=== PATIENT | female | born 1955 | race American Indian/Alaskan Native ===

== ENCOUNTER 2020-06-03 13:20 | Emergency (ER) | payer OTHER ==
--- NOTE | 2020-06-03 14:12 | Emergency Department Report ---
ED General Adult HPI - General Chief complaint: Chest Pain Time Seen by Provider: 06/03/20 14:11 Source: EMS Mode of arrival: Stretcher Limitations: Physical Limitation - History of Present Illness Initial comments: Patient is a 65-year-old female with history of end-stage renal disease with Wednesday dialysis who was sent from dialysis for incidental finding of rapid atrial fibrillation during dialysis. Patient currently asymptomatic, denies chest pain, denies shortness of breath. Patient does feel palpitations, notes she has felt these palpitations intermittently x1 year. Patient denies calf pain or swelling. - Related Data Allergies Allergy/AdvReac Type Severity Reaction Status Date / Time lisinopril Allergy Swelling Verified 06/03/20 14:07 ED Review of Systems ROS: Stated complaint: Other details as noted in HPI Comment: All other systems reviewed and negative ED Past Medical Hx - Past Medical History Previous Medical History?: Yes Hx Hypertension: Yes Hx Renal Disease: Yes (ESRD) - Surgical History Past Surgical History?: Yes Additional Surgical History: Fistula Right Arm - Social History Smoking Status: Never Smoker Substance Use Type: None ED Physical Exam - General Limitations: Physical Limitation General appearance: alert, in no apparent distress - Head Head exam: Present: atraumatic, normocephalic - Eye Eye exam: Present: normal appearance - ENT ENT exam: Present: mucous membranes moist - Neck Neck exam: Present: normal inspection - Respiratory Respiratory exam: Present: normal lung sounds bilaterally. Absent: respiratory distress - Cardiovascular Cardiovascular Exam: Present: regular rate, irregular rhythm. Absent: systolic murmur, diastolic murmur, rubs, gallop - GI/Abdominal GI/Abdominal exam: Present: soft, normal bowel sounds - Extremities Exam Extremities exam: Present: normal inspection - Back Exam Back exam: Present: normal inspection - Neurological Exam Neurological exam: Present: alert, oriented X3 - Psychiatric Psychiatric exam: Present: normal affect, normal mood - Skin Skin exam: Present: warm, dry, intact, normal color. Absent: rash ED Course Vital Signs 06/03/20 06/03/20 06/03/20 14:03 14:08 14:16 Temperature 98.6 F Pulse Rate 112 H 99 H 109 H Respiratory 20 22 23 Rate Blood Pressure 134/63 O2 Sat by Pulse 99 100 100 Oximetry 06/03/20 06/03/20 06/03/20 14:30 14:46 15:00 Temperature Pulse Rate 113 H 105 H 101 H Respiratory 20 21 26 H Rate Blood Pressure 117/74 117/74 113/92 O2 Sat by Pulse 100 100 100 Oximetry 06/03/20 06/03/20 06/03/20 15:16 15:30 15:46 Temperature Pulse Rate 119 H 108 H 104 H Respiratory 18 14 18 Rate Blood Pressure 113/92 151/89 151/79 O2 Sat by Pulse 100 99 100 Oximetry 06/03/20 06/03/20 06/03/20 16:00 16:14 16:16 Temperature Pulse Rate 117 H 117 H 97 H Respiratory 20 17 Rate Blood Pressure 141/78 149/81 O2 Sat by Pulse 100 100 Oximetry 06/03/20 06/03/20 16:31 16:53 Temperature Pulse Rate 100 H 111 H Respiratory 18 Rate Blood Pressure 134/74 O2 Sat by Pulse 100 Oximetry - Reevaluation(s) Reevaluation #1: 06/03/20 17:10 Patient consistently between 90-105 in atrial fibrillation on desk monitor. Patient asymptomatic throughout entirety of emergency department evaluation. Patient states she was never on blood thinners, was on medication for rate controlled which was discontinued 3 months ago by nephrology, notes she has history of atrial fibrillation. [facility] contacted, states patient previ ously was taking: Carv 3.125 bid Colace daily Lasix 80mg every other day Quetiapine 150mg qhs Rumdella Ventolin Patient now currently only taking Rumdella binder. Patient's daughter contacted, case discussed, states patient was supposed to get evaluated by cardiology 3 weeks ago, appointment was canceled secondary to patient testing positive for Covid. [facility] on-call physician contacted, case discussed, reviewed records, verifies patient's previous medication regimen, notes no upcoming appointments for patient. Willing to accept patient for transfer or arrange follow-up with primary care doctor tomorrow and cardiology later this week. Patient advised to stay in hospital at this facility or to be transferred to [facility], however, patient requests discharge as she remains asymptomatic. Patient does have history of atrial fibrillation, is rate controlled in no acute distress without any acute medical complaint. In consultation with [place], patient given 1 dose of carvedilol 3.125 prior to discharge for rate control, follow-up arranged for tomorrow by [place]. Patient is advised to follow-up without fail or return to the emergency department for any difficulty with her inability to follow-up as well as for any worsening or developing symptoms. Patient's daughter again contacted to reiterate plan in regards to medication follow-up. Patient advised to take 1 carvedilol 3.125 tomorrow morning. On discharge, patient in no acute distress, and rate controlled atrial fibrillation without medical complaint. ED Medical Decision Making - Lab Data Result diagrams: 06/03/20 14:31 06/03/20 14:31 Lab Results 06/03/20 06/03/20 06/03/20 Range/Units 14:31 14:31 14:31 WBC 7.7 (4.5-11.0) K/mm3 RBC 3.25 L (3.65-5.03) M/mm3 Hgb 11.2 (10.1-14.3) gm/dl Hct 33.3 (30.3-42.9) % MCV 103 H (79-97) fl MCH 34 H (28-32) pg MCHC 34 (30-34) % RDW 18.0 H (13.2-15.2) % Plt Count 150 (140-440) K/mm3 Lymph % (Auto) 9.7 L (13.4-35.0) % Ross % (Auto) 15.3 H (0.0-7.3) % Eos % (Auto) 2.9 (0.0-4.3) % Baso % (Auto) Bus Starter Lymph # (Auto) 0.7 L (1.2-5.4) K/mm3 Ross # (Auto) 1.2 H (0.0-0.8) K/mm3 Eos # (Auto) 0.2 (0.0-0.4) K/mm3 Baso # (Auto) 0.1 (0.0-0.1) K/mm3 Seg Neutrophils % 71.3 H (40.0-70.0) % Seg Neutrophils # 5.5 (1.8-7.7) K/mm3 PT (12.2-14.9) Sec. INR (0.87-1.13) APTT (24.2-36.6) Sec. Sodium Cancelled 140 Potassium Cancelled 4.7 Chloride Cancelled 98.7 Carbon Dioxide Cancelled 30 Anion Gap Cancelled 16 BUN Cancelled 58 H Creatinine Cancelled 10.7 H Estimated GFR Cancelled 4 BUN/Creatinine Ratio Cancelled 5 Glucose Cancelled 73 Calcium Cancelled 10.1 Magnesium 2.60 H (1.7-2.3) mg/dL Total Bilirubin Cancelled AST Cancelled ALT Cancelled Alkaline Phosphatase Cancelled Troponin T 0.074 H (0.00-0.029) ng/mL NT-Pro-B Natriuret Pep Cancelled Total Protein Cancelled Albumin Cancelled Albumin/Globulin Ratio Cancelled Triglycerides 80 (2-149) mg/dL Cholesterol 152 (50-199) mg/dL LDL Cholesterol Direct 64 (50-130) mg/dL HDL Cholesterol 88 H (40-59) mg/dL Cholesterol/HDL Ratio 1.72 % Lipase Cancelled TSH (0.270-4.200) mlU/mL 06/03/20 06/03/20 Range/Units 14:31 14:31 WBC (4.5-11.0) K/mm3 RBC (3.65-5.03) M/mm3 Hgb (10.1-14.3) gm/dl Hct (30.3-42.9) % MCV (79-97) fl MCH (28-32) pg MCHC (30-34) % RDW (13.2-15.2) % Plt Count (140-440) K/mm3 Lymph % (Auto) (13.4-35.0) % Ross % (Auto) (0.0-7.3) % Eos % (Auto) (0.0-4.3) % Baso % (Auto) Lymph # (Auto) (1.2-5.4) K/mm3 Ross # (Auto) (0.0-0.8) K/mm3 Eos # (Auto) (0.0-0.4) K/mm3 Baso # (Auto) (0.0-0.1) K/mm3 Seg Neutrophils % (40.0-70.0) % Seg Neutrophils # (1.8-7.7) K/mm3 PT 16.2 H (12.2-14.9) Sec. INR 1.32 H (0.87-1.13) APTT 36.5 (24.2-36.6) Sec. Sodium Potassium Chloride Carbon Dioxide Anion Gap BUN Creatinine Estimated GFR BUN/Creatinine Ratio Glucose Calcium Magnesium (1.7-2.3) mg/dL Total Bilirubin AST ALT Alkaline Phosphatase Troponin T (0.00-0.029) ng/mL NT-Pro-B Natriuret Pep Total Protein Albumin Albumin/Globulin Ratio Triglycerides (2-149) mg/dL Cholesterol (50-199) mg/dL LDL Cholesterol Direct (50-130) mg/dL HDL Cholesterol (40-59) mg/dL Cholesterol/HDL Ratio % Lipase TSH 1.310 (0.270-4.200) mlU/mL Vital Signs 06/03/20 06/03/20 06/03/20 14:03 14:08 14:16 Temperature 98.6 F Pulse Rate 112 H 99 H 109 H Respiratory 20 22 23 Rate Blood Pressure 134/63 O2 Sat by Pulse 99 100 100 Oximetry 06/03/20 06/03/20 06/03/20 14:30 14:46 15:00 Temperature Pulse Rate 113 H 105 H 101 H Respiratory 20 21 26 H Rate Blood Pressure 117/74 117/74 113/92 O2 Sat by Pulse 100 100 100 Oximetry 06/03/20 06/03/20 06/03/20 15:16 15:30 15:46 Temperature Pulse Rate 119 H 108 H 104 H Respiratory 18 14 18 Rate Blood Pressure 113/92 151/89 151/79 O2 Sat by Pulse 100 99 100 Oximetry 06/03/20 06/03/20 06/03/20 16:00 16:14 16:16 Temperature Pulse Rate 117 H 117 H 97 H Respiratory 20 17 Rate Blood Pressure 141/78 149/81 O2 Sat by Pulse 100 100 Oximetry 06/03/20 06/03/20 16:31 16:53 Temperature Pulse Rate 100 H 111 H Respiratory 18 Rate Blood Pressure 134/74 O2 Sat by Pulse 100 Oximetry - EKG Data -: EKG Interpreted by Me (Atrial fibrillation at 88, no ST-T changes, normal QRS) - Radiology Data Radiology results: report reviewed [facility] [address] [place] [address] XRay Report Signed Patient: HARVINDER SOLANO MR#: [id number] : 1955 Acct:[id number] Age/Sex: 65 / F ADM Date: 06/03/20 Loc: ED Attending Dr: Ordering Physician: AMAYA PALOMINO MD Date of Service: 06/03/20 Procedure(s): XR chest 1V ap Accession Number(s): [id number] cc: AMAYA PALOMINO MD Fluoro Time In Minutes: CHEST 1 VIEW 06/03/2020 2:33 PM INDICATION / CLINICAL INFORMATION: Chest Pain. COMPARISON: None available. FINDINGS: SUPPORT DEVICES: None. HEART / MEDIASTINUM: There is moderate cardiomegaly. There is mild prominence of the central pulmonary vessels. There are atherosclerotic calcifications involving the aorta without aneurysm. LUNGS / PLEURA: There is mild linear pulmonary parenchymal opacity paralleling the right mid to lower chest wall. The lungs are otherwise clear. No pneumothorax. ADDITIONAL FINDINGS: No significant additional findings. IMPRESSION: 1. Mild cardiomegaly and pulmonary vascular congestion without overt edema. 2. Linear parenchymal opacity in the right mid hemithorax is likely related to scarring. Signer Name: Sanket Lucero MD Signed: 06/03/2020 2:55 PM Workstation Name: [id number] Transcribed By: RT Dictated By: Sanket Lucero MD Electronically Authenticated By: Sanket Lucero MD Signed Date/Time: 06/03/201454 DD/ 52 TD/TT: Critical care attestation.: If time is entered above; I have spent that time in minutes in the direct care of this critically ill patient, excluding procedure time. ED Disposition Clinical Impression: Atrial fibrillation Disposition: DC-01 TO HOME OR SELFCARE Is pt being admited?: No Condition: Stable Instructions: Atrial Fibrillation, [place] Additional Instructions: [place] will follow up with you tonight by calling you to arrange a follow-up appointment for tomorrow with primary care doctor. They additionally will arrange follow-up with cardiology for later this week. If you are unable to follow-up tomorrow as arranged in the emergency department, please return to the emergency room. Additionally, return to the emergency department at any point for palpitations, chest pain, shortness of breath, or any worsening symptoms. Please take 1 dose of 3.125 mg carvedilol tomorrow morning. Referrals: PRIMARY CAREMD [Primary Care Provider] - 3-5 Days
--- NOTE | 2020-06-03 15:00 | XRay Report ---
CHEST 1 VIEW 06/03/2020 2:33 PM INDICATION / CLINICAL INFORMATION: Chest Pain. COMPARISON: None available. FINDINGS: SUPPORT DEVICES: None. HEART / MEDIASTINUM: There is moderate cardiomegaly. There is mild prominence of the central pulmonar y vessels. There are atherosclerotic calcifications involving the aorta without aneurysm. LUNGS / PLEURA: There is mild linear pulmonary parenchymal opacity paralleling the right mid to lower chest wall. The lungs are otherwise clear. No pneumothorax. ADDITIONAL FINDINGS: No significant additional findings. IMPRESSION: 1. Mild cardiomegaly and pulmonary vascular congestion without overt edema. 2. Linear parenchymal opacity in the right mid hemithorax is likely related to scarring. Signer Name: Sanket Lucero MD Signed: 06/03/2020 2:55 PM Workstation Name: [id number]
[2020-06-03 15:25] LABS: Calcium 10.1 mg/dL (8.4-10.2)
[2020-06-03 15:29] LABS: Basophils # (Auto) 0.1 K/mm3 (0.0-0.1); Eosinophils # (Auto) 0.2 K/mm3 (0.0-0.4); Eosinophils % (Auto) 2.9 % (0.0-4.3); Hematocrit 33.3 % (30.3-42.9); Hemoglobin 11.2 gm/dl (10.1-14.3); Lymphocytes # (Auto) 0.7 K/mm3 (1.2-5.4); Lymphocytes % (Auto) 9.7 % (13.4-35.0); Mean Corpuscular HGB Conc 34 % (30-34); Mean Corpuscular Volume 103 fl (79-97); Monocytes # (Auto) 1.2 K/mm3 (0.0-0.8); Monocytes % (Auto) 15.3 % (0.0-7.3); Platelet Count 150 K/mm3 (140-440); Red Blood Count 3.25 M/mm3 (3.65-5.03)
[2020-06-03 15:34] LABS: Chol/HDL Ratio 1.72 %
[2020-06-03 15:44] LABS: INR 1.32 (0.87-1.13)
[2020-06-03 15:45] LABS: Partial Thromboplastin Time 36.5 Sec. (24.2-36.6)
[2020-06-03] MEDS ORDERED: dilTIAZem 25 MG/5 ML INJ IV ONE (16:11)
[2020-06-03] MEDS ORDERED: dilTIAZem 25 MG/5 ML INJ ONE (16:34)
[2020-06-03] MEDS ORDERED: carvediloL 3.125 MG TAB PO ONE (16:48)
[2020-06-03 17:24] VITALS: BP 151/46
== END 2020-06-03 17:45 | disposition home or self-care (01) ==
LOC: ED 13:20
DX: I48.91 Unspecified atrial fibrillation (principal); I12.0 Hypertensive chronic kidney disease with stage 5 chronic kidney disease or end stage renal disease; N18.6 End stage renal disease; Z98.890 Other specified postprocedural states; Z88.8 Allergy status to other drugs, medicaments and biological substances
CPT/HCPCS: 36415; 71045; 80048; 80061; 83735; 84443; 84484; 85025; 85610; 85730; 93005